=== PATIENT | female | born 1965 | race Hispanic/Latino ===

== ENCOUNTER 2019-03-26 11:33 | Outpatient (CLI) | payer BC ==
--- NOTE | 2019-03-29 11:04 | Mammography Report ---
DIGITAL SCREENING MAMMOGRAM WITH CAD, 03/26/2019 INDICATION: Routine screening mammography. TECHNIQUE: Digital bilateral 2D mammography was obtained in the craniocaudal and mediolateral obliq ue projections without and with implant displacement. This examination was interpreted with the benef it of Computer-Aided Detection analysis. COMPARISON: None available. FINDINGS: Breast Density: There are scattered areas of fibroglandular density. There is no evidence of dominant mass, suspicious calcifications or architectural distortion in eithe r breast. Limited mobility of the right implant. IMPRESSION: No mammographic evidence of malignancy. Follow up recommendation: Routine yearly BI-RADS Category 2: Benign. A "normal" or negative report should not discourage follow up or biopsy of a clinically significant f inding. A written summary of these findings will be mailed to the patient. The patient will be entered into a mammography reporting system which will generate a reminder letter for the patient's next appointmen t at the appropriate interval. The [employer] recommends yearly mammograms starting at age 40 and continuing as l delia as a woman is in good health. Breast MRI is recommended for women with an approximate 20-25% or greater lifetime risk of breast cancer, including women with a strong family history of breast or ova haylee cancer or who have been treated for Hodgkin's disease. Signer Name: Carlos Velazquez MD Signed: 03/29/2019 10:59 AM Workstation Name: [id number]
== END 2019-03-26 11:34 | disposition home or self-care (01) ==
LOC: SPVWC 11:33
PROVIDERS: ATTEND Surgery
DX: Z12.31 Encounter for screening mammogram for malignant neoplasm of breast (principal); N64.89 Other specified disorders of breast
CPT/HCPCS: 77067

== ENCOUNTER 2020-03-30 09:05 | Outpatient (CLI) | payer BC ==
--- NOTE | 2020-03-30 10:05 | Mammography Report ---
DIGITAL SCREENING MAMMOGRAM WITH CAD, 03/30/2020 CLINICAL INFORMATION / INDICATION: Routine screening mammography. SCREENING MAMMO TECHNIQUE: Digital bilateral 2D mammography was obtained in the craniocaudal and mediolateral obliqu e projections. This examination was interpreted with the benefit of Computer-Aided Detection analysis . COMPARISON: 03/26/19. FINDINGS: Breast Density: There are scattered areas of fibroglandular density. No dominant mass, suspicious calcifications, or architectural distortion in either breast. There are bilateral subpectoral saline implants. No new abnormality is seen. IMPRESSION: No mammographic evidence of malignancy. Follow up recommendation: Routine yearly BI-RADS Category 2: Benign. A "normal" or negative report should not discourage follow up or biopsy of a clinically significant f inding. A written summary of these findings will be mailed to the patient. The patient will be entered into a mammography reporting system which will generate a reminder letter for the patient's next appointmen t at the appropriate interval. The [employer] recommends yearly mammograms starting at age 40 and continuing as l delia as a woman is in good health. Breast MRI is recommended for women with an approximate 20-25% or greater lifetime risk of breast cancer, including women with a strong family history of breast or ova haylee cancer or who have been treated for Hodgkin's disease. Signer Name: Derek Guevara MD Signed: 03/30/2020 10:01 AM Workstation Name: [id number]
== END 2020-03-30 09:06 | disposition home or self-care (01) ==
LOC: SPVWC 09:05
PROVIDERS: ATTEND Surgery
DX: Z12.31 Encounter for screening mammogram for malignant neoplasm of breast (principal)
CPT/HCPCS: 77067